=== PATIENT | female | born 1980 | race Caucasian/White ===

== ENCOUNTER 2024-11-22 21:13 | Emergency (ER) | payer SELFPAY ==
[2024-11-22 21:18] VITALS: BP 135/83; PULSE 65; RESP 20; TEMP 36.9; O2SAT 98
[2024-11-22 22:17] VITALS: BP 167/71; PULSE 56; RESP 18; O2SAT 99
--- NOTE | 2024-11-22 22:18 | ED.GENADUL_ITS ---
Discharge Plan Disposition Patient Disposition: Home Condition: Good Discharge Details Clinical Impression: Pain of right lateral upper thigh Primary Care Provider: Unknown,Unknown ED Provider: Javier Laurent and New Rx's Prescriptions: No Action naltrexone 1.5 mg capsule 1.5 mg PO .Daily PM Discharge Instructions Instructions: Leg Pain (ED) Additional Instructions: You were seen for right lateral thigh pain. Your exam and laboratory studies are reassuring and this is unlikely to be related to DVT. Would recommend taking ibuprofen 600 mg 3 times a day for the next few days and follow-up with primary care as outpatient. Return to ED for new or worsening pain, leg swelling, chest pain, shortness of breath, syncope. Discharge Data Discharge Date/Time-TO BE ENTERED AT DEPARTURE: 11/22/24 23:42 HPI General Mode of arrival: ambulatory . Date/Time Provider Initiated Documentation: 11/22/24 22:18 . Limitations to Documentation: no limitations . Information obtained by: patient and RN notes reviewed . HPI Narrative: Patient presents to ED with right lower extremity pain that began early this afternoon. Patient [place] been [place] long international flight. Pain began this afternoon right lateral thigh. Pain somewhat radiates down toward the anterior knee. Maybe had a little discomfort anteriorly with tingling down into the toes. No calf pain or posterior leg pain. No medial thigh pain. No prior history of clots. No chest pain or shortness of breath or syncope. No leg swelling. No significant past medical history other than Naina's. No estrogen use. 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 Related Data Home Medications ?Medication ?Instructions ?Recorded ?Confirmed naltrexone 1.5 mg capsule 1.5 mg PO .Daily PM 11/22/24 11/22/24 Allergies Allergy/AdvReac Type Severity Reaction Status Date / Time Penicillins Allergy Intermediate Anaphylaxis Verified 11/22/24 21:24 General Stated Complaint: Vascular VAMSHI: 3 Exam Narrative Exam Narrative: Const: WDWN female in NAD. VS per triage. HEENT: NC/AT. Normal facial exam. Neck: Supple. Trachea midline. Lungs: Normal respiratory effort. Cor: RRR. Strong bilateral DP pulses. Neuro: A+O x 3. Normal speech, mentation, gait. Cranial nerves II - XII grossly intact. No gross motor or sensory deficit. Ext: No C/C/E. Point tender in the right lateral mid thigh. No erythema or bruising. No swelling or edema to the right lower extremity. No calf tenderness. No tenderness medial thigh. Course Vital Signs Vital signs: Vital Signs Temperature 98.5 F 11/22/24 21:18 Pulse 65 11/22/24 21:18 Respiratory Rate 20 11/22/24 21:18 Blood Pressure 135/83 11/22/24 21:18 Pulse Oximetry 98 11/22/24 21:18 Temperature 98.5 F 11/22/24 21:18 Pulse 56 L 11/22/24 22:17 Respiratory Rate 18 11/22/24 22:17 Blood Pressure 167/71 H 11/22/24 22:17 Blood Pressure Mean 103 11/22/24 22:17 Blood Pressure Position Sitting 11/22/24 21:18 Pulse Oximetry 99 11/22/24 22:17 Oxygen Delivery Method Room Air 11/22/24 22:17 Oxygen Flow Rate 0 11/22/24 22:17 Medical Decision Making Patient presenting to ED with right lower extremity pain which began this afternoon. Pain is in the lower right lateral thigh radiates somewhat down and around to the anterior knee had some mild tingling distally into the toes earlier but not currently. Pain is more consistent with a dermatome and not DVT. She has no posterior calf tenderness, medial thigh tenderness. [id number] concern for DVT. Wells DVT risk score is -2. Will obtain D- dimer and creatinine but my suspicion for DVT is quite low. Patient's D-dimer is normal. She will not require anticoagulation and given her low risk based on Wells DVT score, she does not need follow-up ultrasound. Recommend acetaminophen and ibuprofen over the next couple days. Follow-up with primary care. Return precautions provided. Lab Data Lab results reviewed: Yes I reviewed the patient's lab results. Quality:SDOH Health Related Social Needs: No Data to Display [facility] All Active Problems (Updated 11/22/24 @ 23:33 by Javier Laurent MD) Pain of right lateral upper thigh (Acute) Medical History Naina thyroiditis Social History Smoking risk assessment performed?: No
[2024-11-22 22:51] LABS: CREATININE 0.8 mg/dL (0.55-1.02); Estimated GFR 93.12 (mL/min/1.73m2)
[2024-11-22 23:04] VITALS: RESP 18
[2024-11-22 23:08] LABS: D-Dimer 177 ng/mlFEU (<500)
== END 2024-11-22 23:42 | disposition home or self-care (01) ==
PROVIDERS: Emergency Provider Emergency Medicine
DX: M79.651 Pain in right thigh (principal)
CPT/HCPCS: 99283; 82565; 85379

== ENCOUNTER 2025-02-21 12:27 | Outpatient (CLI) | payer SELFPAY ==
[2025-02-21 12:19] LABS: Kit/Specimen SENT
== END 2025-02-21 12:28 | disposition home or self-care (01) ==
LOC: LBO 12:27
PROVIDERS: Visit Provider Naturopath
DX: R59.0 Localized enlarged lymph nodes (principal); R42 Dizziness and giddiness; R53.83 Other fatigue
CPT/HCPCS: 36415